=== PATIENT | male | born 1990 | race Caucasian/White ===

== ENCOUNTER 2024-06-08 18:59 | Emergency (ER) | payer BC, SELFPAY ==
[2024-06-08 19:29] VITALS: BP 122/85
[2024-06-08 19:56] LABS: % Basophils 0.8 % (0-2); % Eosinophils 0.8 % (0-6); % Immature Granulocytes 0.3 % (0-0.5); % Lymphocytes 27.2 % (20.5-51.1); % Monocytes 9.2 % (1.7-9.3); % Neutrophils 61.7 % (42.2-75.2); Absolute Basophils 0.1 10^3/uL (0-0.2); Absolute Eosinophils 0.1 10^3/uL (0-0.7); Absolute Lymphocytes 1.7 10^3/uL (1.2-3.4); Absolute Monocytes 0.6 10^3/uL (0.1-0.6); Absolute Neutrophils 3.8 10^3/uL (1.4-6.5); Hematocrit 43.9 % (39.0-52.0); Hemoglobin 15.8 g/dL (13.0-18.0); Mean Corpuscular Hgb 31.4 pg (27.0-31.0); Mean Corpuscular Volume 87.3 fL (80.0-94.0); Mean Platelet Volume 10.9 fL (7.4-10.4); Nucleated Red Blood Cells % 0 % (-); Platelet Count 232 10^3/uL (130-400); Red Blood Cell Count 5.03 10^6/uL (4.70-6.10); Red Cell Dist. Width 12.2 % (11.5-14.5); White Blood Cell Count 6.2 10^3/uL (4.8-10.8)
[2024-06-08 20:08] LABS: ALT (SGPT) 44 U/L (0-50); AST (SGOT) 25 U/L (17-59); Albumin 4.9 g/dl (3.5-5.0); Alkaline Phosphatase 111 U/L (38-126); Blood Urea Nitrogen 12 mg/dl (9-20); Calcium 9.6 mg/dl (8.4-10.2); Carbon Dioxide 29 mmol/L (22-30); Chloride 98 mmol/L (98-107); Glucose 120 mg/dl (70-99); Potassium 4.3 mmol/L (3.5-5.1); Sodium 136 mmol/L (135-145); Total Bilirubin 0.8 mg/dl (0.2-1.3); Total Protein 7.1 g/dl (6.3-8.2); eGFR > 60.00
[2024-06-08 22:46] VITALS: BP 143/88
[2024-06-08 23:22] VITALS: BP 142/90
[2024-06-09] VITALS: BP 131/81
--- NOTE | 2024-06-09 00:09 | ED.GENMED ---
History of Present Illness
General
Chief Complaint: Abdominal Symptoms
Source: patient and family
Exam Limitations: none
Time Seen by Provider: 06/08/24 23:43
Nursing documentation reviewed up to this point in time: agreed with
History of Present Illness
History of Present Illness:
This is a pleasant 33-year-old male who presents with hyperemesis. Patient has a previous diagnosis of cannabinoid cyclic vomiting. He used to use medical marijuana but states he has stopped. This past weekend, he did use medical marijuana once.
He states that his vomiting symptoms began yesterday and persist. He does report that Ativan has helped him in the past. He feels dehydrated. Denies chest pain or shortness of breath. Denies any hematemesis.
Past History
Past History
ED Past Medical History: Psychiatric
ED Past Surgical History: Orthopedic and Other (Malrotation, intestines with LAD repair)
Social History
Tobacco: Non-smoker
Alcohol: Occasional
Drug: Marijuana
Personal: Single
Living: with family
Review of Systems
Review of Systems
Allergies reviewed?: Yes
All Other Systems: ROS reviewed and negative except as documented in HPI and ROS
Constitutional: Reports no symptoms
EENT: Reports no symptoms
Respiratory: Reports no symptoms
Cardiac: Reports no symptoms
ABD/GI: Reports nausea and vomiting
: Reports no symptoms
Musculoskeletal: Reports no symptoms
Skin: Reports no symptoms
Neurological: Reports no symptoms
Endocrine: Reports no symptoms
Hematologic/Lymphatic: Reports no symptoms
Psychiatric: Reports no symptoms
Phy Exam
General Physical Exam
General Presentation: moderate distress
General age: appears stated age
General Skin: warm and dry
General Habitus: normal
General Mental: alert
General Hydration: appears well hydrated
ENT Exam
ENT Exam: EOMI, pharynx normal, neck supple and normocephalic
Eye Exam
Eye Exam: PERRL, cornea clear and conjunctiva normal
Cardiovascular Exam
Cardiovascular Exam: regular rate/rhythm, no edema, no murmur and normal peripheral pulses
Pulmonary Exam
Pulmonary Exam: lungs clear, no respiratory distress, no rales, no crackles, no rhonchi, no stridor, no wheezing and no cough
Gastrointestinal Exam
Gastrointestinal Exam: normal bowel sounds, non tender, soft, no organomegaly, no pulsatile mass and non distended
Neurological Exam
Neurological Exam: alert, oriented x3, no motor deficits and speech normal
Musculoskeletal Exam
Musculoskeletal Exam: full ROM and no edema
Skin Exam
Skin Exam: normal color, warm/dry, no rash and no petechia
Psychiatric Exam
Psychiatric Exam: normal mood/affect
Course
Orders/Labs/Results
Orders:
Orders
06/08/24 19:45
CBC/With Diff [Complete Blood Count/With Diff] Urgent
CMP [Comprehensive Metabolic Panel] Urgent
06/09/24 00:09
0.9% Sodium Chloride 1000 ml [Nss] 1,000 ml IV BOLUS
Lorazepam [Ativan] 1 mg IV NOW STA
Abnormal Lab Results
06/08/24
19:45
MCH 31.4 H pg
(27.0-31.0)
MPV 10.9 H fL
(7.4-10.4)
Glucose 120 H mg/dl
(70-99)
06/08/24 19:45
06/08/24 19:45
Vital Signs
Initial and Last Documented VS:
Initial Vital Signs
Temp Pulse Resp BP Pulse Ox
98.5 F 93 16 122/85 100
06/08/24 19:29 06/08/24 19:29 06/08/24 19:29 06/08/24 19:29 06/08/24 19:29
Last Documented Vital Signs
Temp Pulse Resp BP Pulse Ox
98.5 F 89 14 143/88 100
06/08/24 19:29 06/08/24 22:46 06/08/24 22:46 06/08/24 22:46 06/08/24 22:46
*Pulse Oximetry
Patient hypoxic: no
*Critical Care Note
Total Time (30-74mins, 75-104mins- exclusive of procedures): Not Applicable
Update Note
Update Note:
Patient feeling better. No acute distress
ED Attending Note
-
Portions of this chart may have been created with voice recognition software.� Occasional wrong word or��sound alike� substitutions may have occurred due to the inherent limitations of voice recognition software.
Discharge Plan
Departure
Patient Disposition: Home (Routine Discharge)
Date of Disposition: 06/09/24
Time of Disposition: 01:25
Patient with high blood pressure during this ER visit?: Yes
Condition: Good
Discharge Problem:
Cyclic vomiting syndrome
Instructions: Nausea and Vomiting, Adult (DC)
Prescriptions:
New
ondansetron 4 mg tablet,disintegrating
4 mg PO Q8H PRN (Reason: nausea and vomiting) Qty: 10 0RF
No Action
oxycodone-acetaminophen 1 TABLET tablet
1 - 2 tab PO Q4
ondansetron 4 MG tablet,disintegrating
4 mg PO TIDPRN PRN (Reason: nausea/vomiting) Qty: 15 0RF
Referrals:
Carmen Perez MD [Family Provider] -
Activity Restrictions/Additional Instructions:
It was a pleasure meeting you and taking part in your care. We hope for your continued healing and wellness.
Please read discharge instructions in their entirety. However, they are for general education and may not describe your exact diagnosis at discharge. Information on your ER visit and medical conditions were discussed with you along with appropriate
follow up information...
If indicated, please take your medications as instructed and indicated on discharge paperwork.
Please schedule a follow up appointment as directed. Call to schedule an appointment
Please return to the emergency department with ANY change in, persisting, or worsening of symptoms. If any of your symptoms do not improve, or persist, or become more severe within 6-12 hours, please return to the emergency department for further
care.
Please return to the emergency department if you develop a headache, neck pain/stiffness, fever greater than 100.4F, chest pain, shortness of breath, persistent nausea, vomiting, slurred speech, difficulty walking, numbness/tingling, weakness, signs
of infection or any other symptoms that are worrisome to you.
If you have any questions or concerns please do not hesitate to call the Hospital at or E-mail me directly at [email or web address]
Interventions
Interventions:
*Risk Screen - Suicide Last Done: 06/08/24 19:29
*General Assessment Last Done: 06/09/24 00:05
*Neglect/Abuse Screening Last Done: 06/08/24 19:29
*ED- Fall Risk Assessment Last Done: 06/09/24 00:05
*ED COVID-19 Vaccine History Last Done: 06/09/24 00:05
UF-Bkhogm-Ivsdupkmxp Assessment Last Done: 06/09/24 00:05
Discharge Date and Time
Print Language: HONDURAN
[2024-06-09] MEDS: ATIVAN 1 MG IV (00:33)
[2024-06-09] MEDS: NSS 1000 IV (00:33)
[2024-06-09 01:00] VITALS: BP 135/88
[2024-06-09 01:33] VITALS: BP 142/93
[2024-06-09] MEDS: ZOFRAN 4 MG IV (01:44)
[2024-06-09 01:50] VITALS: BP 142/93
== END 2024-06-09 01:50 | disposition home or self-care (01) ==
LOC: EMR 18:59
PROVIDERS: Emergency Medicine; EMERGENCY PHYSICIAN Student in an Organized Health Care Education/Training Program; FAMILY PHYSICIAN Internal Medicine
DX: R11.15 Cyclical vomiting syndrome unrelated to migraine (principal)
CPT/HCPCS: 99283; 96374; 96375; 96361; 80053; 85025